=== PATIENT | female | born 1980 | race Two or more races ===

== ENCOUNTER 2024-01-09 20:00 | Emergency (ER) | payer OTHER, SELFPAY ==
[2024-01-09 20:03] VITALS: BP 121/83
[2024-01-09 20:20] LABS: % Basophils 0.6 % (0-2); % Eosinophils 4.7 % (0-6); % Immature Granulocytes 0.1 % (0-0.5); % Lymphocytes 45.5 % (20.5-51.1); % Monocytes 5.4 % (1.7-9.3); % Neutrophils 43.7 % (42.2-75.2); Absolute Basophils 0.1 10^3/uL (0-0.2); Absolute Eosinophils 0.4 10^3/uL (0-0.7); Absolute Lymphocytes 3.7 10^3/uL (1.2-3.4); Absolute Monocytes 0.4 10^3/uL (0.1-0.6); Absolute Neutrophils 3.5 10^3/uL (1.4-6.5); Hematocrit 40.2 % (37.0-47.0); Hemoglobin 14.1 g/dL (12.0-16.0); Mean Corp Hgb Conc. 35.1 g/dL (33.0-37.0); Mean Corpuscular Hgb 27.4 pg (27.0-31.0); Mean Corpuscular Volume 78.1 fL (81.0-99.0); Mean Platelet Volume 10.2 fL (7.4-10.4); Nucleated Red Blood Cells % 0 %; Platelet Count 231 10^3/uL (130-400); Red Blood Cell Count 5.15 10^6/uL (4.20-5.40); Red Cell Dist. Width 12.5 % (11.5-14.5)
[2024-01-09 20:37] LABS: HCG, Serum Qualitative Screen Negative
[2024-01-09 20:39] LABS: ALT (SGPT) 13 U/L (0-35); AST (SGOT) 16 U/L (14-36); Albumin 3.9 g/dl (3.5-5.0); Alkaline Phosphatase 46 U/L (38-126); Blood Urea Nitrogen 14 mg/dl (7-17); Calcium 9.3 mg/dl (8.4-10.2); Carbon Dioxide 29 mmol/L (22-30); Chloride 100 mmol/L (98-107); Glucose 96 mg/dl (70-99); Potassium 3.6 mmol/L (3.5-5.1); Sodium 136 mmol/L (135-145); Total Bilirubin 0.7 mg/dl (0.2-1.3); Total Protein 7.5 g/dl (6.3-8.2); eGFR > 60.00
--- NOTE | 2024-01-09 21:51 | ED.GENMED ---
History of Present Illness
General
Chief Complaint: Rectal Bleeding
Source: patient
Exam Limitations: none
Time Seen by Provider: 01/09/24 21:24
Travel History
Have you had any contact with someone who has COVID-19?: No
Do you have any symptoms of coronavirus? Fever > 100 degrees, chills, cough, shortness of breath, sore throat, loss of taste or smell, muscle aches, or headache?: No
History of Present Illness
History of Present Illness:
This is a 43 year old female that comes in with c/o abd pain. States that she started on Monday with abd pain. States that that it felt better the next day and then on Monday she went to the to have a BM and there was dark red blood in the
toilet. States that she wiped vaginally and rectally and there was not blood. Then Today this happened again and this time it felt like the blood was heavy and bright red. States that she has a headache. Denies any fever, chills, chest pain, SOB,
nausea, vomiting, diarrhea, dizziness, urinary burning.
Past History
Past History
ED Past Medical History: None; Negative Asthma, HTN, Hypercholesterolemia or NIDDM
ED Past Surgical History: Other (Varicose vein stripping)
Social History
Tobacco: Non-smoker
Alcohol: None
Personal:
Living: with family
Review of Systems
Review of Systems
All Other Systems: ROS reviewed and negative except as documented in HPI and ROS
Constitutional: Reports no symptoms; Denies fever or chills
EENT: Reports no symptoms
Respiratory: Reports no symptoms; Denies cough or trouble breathing
Cardiac: Reports no symptoms; Denies chest pain
ABD/GI: Reports abdominal pain; Denies nausea, vomiting or diarrhea
: Denies dysuria, frequency or urgency
Musculoskeletal: Reports no symptoms
Skin: Reports no symptoms
Neurological: Reports headache; Denies dizzy
Psychiatric: Reports no symptoms
Phy Exam
General Physical Exam
General Presentation: no apparent distress (Refused pain medication at this time)
General age: appears stated age
General Skin: warm and dry
General Habitus: normal
General Mental: alert
General Hydration: appears well hydrated
ENT Exam
ENT Exam: TM's normal, pharynx normal and neck supple
Eye Exam
Eye Exam: EOMI
Cardiovascular Exam
Cardiovascular Exam: regular rate/rhythm, no edema, no murmur and normal peripheral pulses
Pulmonary Exam
Pulmonary Exam: lungs clear, no respiratory distress, no rales, chest non tender, no crackles, no rhonchi, no wheezing and no cough
Gastrointestinal Exam
Gastrointestinal Exam: normal bowel sounds, soft, no organomegaly, no pulsatile mass, non distended, tender (Generalized abd tenderness with palpation) and other (Stool brown hem negative)
Musculoskeletal Exam
Musculoskeletal Exam: full ROM and no edema
Skin Exam
Skin Exam: normal color, warm/dry, no rash and no petechia
Psychiatric Exam
Psychiatric Exam: normal mood/affect
Course
Orders/Labs/Results
Orders:
Orders
01/09/24 20:07
Test Result ONCE
01/09/24 20:11
Complete Blood Count/With Diff Urgent
Comprehensive Metabolic Panel Urgent
HCG, Serum Qualitative Screen Urgent
01/09/24 21:54
0.9% Sodium Chloride 1000 ml [Nss] 1,000 ml IV BOLUS
01/09/24 21:58
CT Abd/pelvis W Iv Cont Urgent
Comment:
Reason For Exam: generalized abd pain, bloody stool
01/09/24 22:08
Type+Screen Urgent
BBK Wristband Number:
01/09/24 23:23
Urinalysis Reflex To Culture Urgent
Date Specimen was Collected: 01/09/24
Time Specimen was Collected: 23:14
Urine Microscopic Reflex Cult Urgent
Abnormal Lab Results
01/09/24 01/09/24
20:11 23:23
MCV 78.1 L fL
(81.0-99.0)
Absolute Lymphs (auto) 3.7 H 10^3/uL
(1.2-3.4)
Leukocyte Esterase Rfl Trace A
(Negative)
Urine Bacteria (Reflex) Few A
(Negative)
01/09/24 20:11
01/09/24 20:11
Labs unremarkable. HCG negative. Urine negative for infection.
Vital Signs
Initial and Last Documented VS:
Initial Vital Signs
Temp Pulse Resp BP Pulse Ox
98.1 F 64 19 121/83 100
01/09/24 20:03 01/09/24 20:03 01/09/24 20:03 01/09/24 20:03 01/09/24 20:03
Last Documented Vital Signs
Temp Pulse Resp BP Pulse Ox
98.1 F 64 19 104/64 98
01/09/24 20:03 01/09/24 20:03 01/09/24 20:03 01/09/24 23:00 01/09/24 23:45
MDM/Problems Addressed
Differential Diagnosis Includes:
Colitis, enteritis,
MDM/Problems Addressed:
This is a 43 year old female that comes in with c/o abd pain and rectal bleeding. States that she started with abd pain on Monday and then on Monday she had blood in her stool. Then again today she had bright red blood in the stool
Will get labs and CT scan.
Back into see patient. Explained that her blood work was normal and that the CT shows ovarian cyst that are small. There is no other acute process. Rectal exam negative for blood. Explained to patient that is her urine is negative she will be able
to go home and follow up with the family doctor. Patient to return with increased abd pain, rectal bleeding or any other concerns.
Chronic conditions affecting care:
NA
Acute Exacerbation and/or Progression of Chronic Illness:
NA
*Radiology
Radiology exam reviewed: radiology read reviewed (CT-Simple bilateral ovarian cyst. Mild free fluid in the pelvis likely physiologic. A recently ruptured ovarian cyst cannot be excluded. Several too small to characterize hypodense hepatic lesion
likely small cyst or hemangiomas. Moderate fecal material throughout the colon. IUD, )
*Pulse Oximetry
Patient hypoxic: no
*EKG
Interpreted by ED Provider?: NA
Rate: EKG- N/A
*[employer] Interpretation
Rate: [employer]- N/A
*Critical Care Note
Total Time (30-74mins, 75-104mins- exclusive of procedures): Not Applicable
ED Attending Note
-
Portions of this chart may have been created with voice recognition software.� Occasional wrong word or��sound alike� substitutions may have occurred due to the inherent limitations of voice recognition software.
Discharge Plan
Departure
Patient Disposition: Home (Routine Discharge)
Date of Disposition: 01/10/24
Time of Disposition: 00:41
Patient with high blood pressure during this ER visit?: No
Condition: Good
Covid-19: Not Applicable
Discharge Problem:
Lower abdominal pain
Instructions: Abdominal Pain
Prescriptions:
No Action
prednisone 10 MG tablet
10 mg PO .TAPER Qty: 30 0RF
Rx Instructions:
Take 40mg daily x3days, 30mg daily x3days,
20mg daily x3days, 10mg daily x3days.
Referrals:
Magalis Perez MD [Active] - Call in 1-3 days for appt
NONE,* [Family Provider] -
Activity Restrictions/Additional Instructions:
As discussed, your blood work is all normal along with the Urine. Your CT shows that you have bilateral small ovarian cyst, one on each side. There is also what appears to be cyst on the liver. Your stool on rectal exam was negative for blood. This
may be due to something you have eaten. Please follow up with the family doctor for recheck. IF YOU HAVE INCREASED PAIN OR BLEEDING OR YOU HAVE ANY OTHER CONCERNS PLEASE RETURN TO THE EMERGENCY ROOM.
Interventions
Interventions:
*Risk Screen - Suicide Last Done: 01/09/24 20:03
*General Assessment Last Done: 01/09/24 20:03
*Neglect/Abuse Screening Last Done: 01/09/24 20:03
ED- Fall Risk Assessment Last Done: 01/09/24 22:17
*ED COVID-19 Vaccine History Last Done: 01/09/24 20:03
GQ-Opklfy-Kgfkxbsyfq Assessment Last Done: 01/09/24 22:54
ED- Cardiac Assessment Last Done: 01/09/24 22:54
ED- Pulmonary Assessment Last Done: 01/09/24 22:54
[2024-01-09 21:57] VITALS: BMI 30.5
[2024-01-09] MEDS: NSS 1000 IV (22:06)
[2024-01-09 22:30] VITALS: BP 99/62
[2024-01-09 23:00] VITALS: BP 104/64
[2024-01-09 23:52] LABS: Urine Albumin Negative (Neg - Trace); Urine Bilirubin Negative (Negative); Urine Character Clear (Clear); Urine Color Yellow; Urine Glucose Negative (Negative); Urine Ketone Negative (Negative); Urine Leukocyte Trace (Negative); Urine Nitrite Negative (Negative); Urine Occult Blood Negative (Negative); Urine Urobilinogen Negative (Neg - 1+)
[2024-01-10 00:40] LABS: Urine Bacteria Few (Negative); Urine Red Blood Cell 0-2 /HPF (0-2)
[2024-01-10 00:43] VITALS: BP 105/70
== END 2024-01-10 00:52 | disposition home or self-care (01) ==
LOC: EMR 20:00
PROVIDERS: Clinical Nurse Specialist Family Health; Emergency Medicine; EMERGENCY PHYSICIAN Emergency Medicine
DX: R10.30 Lower abdominal pain, unspecified (principal)
CPT/HCPCS: 99285; 96360; 96361; 74177; 80053; 81003; 81015; 84703; 85025; 86850; 86900; 86901; Q9967

== ENCOUNTER → 2024-08-01 14:48 | Outpatient (REF) | payer OTHER, SELFPAY | LOC: HWRCS 14:48 | PROVIDERS: ATTENDING PHYSICIAN Student in an Organized Health Care Education/Training Program | DX: R00.1 Bradycardia, unspecified (principal) | CPT/HCPCS: 93306 ==

== ENCOUNTER → 2024-08-02 10:19 | Outpatient (REF) | payer OTHER, SELFPAY | LOC: RCS 10:19 | PROVIDERS: ATTENDING PHYSICIAN Student in an Organized Health Care Education/Training Program | DX: R00.1 Bradycardia, unspecified (principal) | CPT/HCPCS: 93017 ==